=== PATIENT | male | born 1985 | race Two or more races ===

== ENCOUNTER 2018-01-18 04:07 | Emergency (ER) | payer SELFPAY ==
[~2018-01-18] VITALS: Ht 170.2 cm; Wt 56.7 kg
[2018-01-18] MEDS ORDERED: MIDAZOLAM HCL PF 5 MG/5 ML VIAL. ONE ×2 (04:24→04:34)
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
[2018-01-18] MEDS ORDERED: TETANUS AND DIPHTHERIA TOX/PF 0.5 ML VIAL. VAX IM ONE (05:00)
[2018-01-18] MEDS ORDERED: BUPIVACAINE MPF 0.5% 30 ML VIAL. SQ ONE (05:00)
[2018-01-18] MEDS ORDERED: LIDOCAINE 2%/EPI 1:100,000 20 ML VIAL. IJ ONE (05:00)
[2018-01-18] MEDS ORDERED: MIDAZOLAM HCL PF 5 MG/5 ML VIAL. IV ONE ×2 (05:00)
[2018-01-18 05:07] LABS: BASO % 1 % (0-3); EOS % 0 % (0-3); HEMATOCRIT 44.5 % (39.0-53.0); HEMOGLOBIN 15.3 g/dL (13.0-17.5); LYMPH # 2.2 x10^3/uL (1.0-4.8); LYMPH % 31 % (24-48); MEAN CORPUSCULAR HEMOGLOBIN 31 pg (25-35); MEAN CORPUSCULAR HGB CONC 34 g/dL (31-37); MEAN CORPUSCULAR VOLUME 91 fL (79-100); MONO # 0.3 x10^3/uL (0.0-1.1); MONO % 4 % (0-9); NEUT # 4.6 x10^3uL (1.8-7.7); NEUT % 64 % (31-73); PLATELET COUNT 288 x10^3/uL (140-400); RED BLOOD COUNT 4.88 x10^6/uL (4.30-5.70); RED CELL DISTRIBUTION WIDTH 13.2 % (11.5-14.5); WHITE BLOOD COUNT 7.2 x10^3/uL (4.0-11.0)
[2018-01-18 05:16] LABS: GFR 86.6; MAGNESIUM 2.2 mg/dL (1.8-2.4)
[2018-01-18] MEDS ORDERED: THIAMINE 200 MG/2 ML VIAL. IV ONE (05:30)
[2018-01-18] MEDS ORDERED: MVI, ADULT NO.4 WITH VIT K 10 ML, FOLIC ACID 1 MG, THIAMINE 100 MG in IV DEXTROSE 5%-LA... IV ONE ×4 (05:30)
[2018-01-18] MEDS ORDERED: IV RINGERS SOLUTION,LACTATED 1,000 ML IV ONE (05:30)
[2018-01-18] MEDS ORDERED: MVI, ADULT NO.4 WITH VIT K 10 ML VIAL IV ONE (05:30)
[2018-01-18] MEDS ORDERED: FAMOTIDINE 20 MG/2 ML VIAL ONE (05:32)
[2018-01-18] MEDS: MIDAZOLAM HCL PF 5 MG/5 ML VIAL. IV ONE ×2 (05:46→06:30)
--- NOTE | 2018-01-18 05:50 | RAD ---
CT head without contrast. CT cervical spine without contrast. HISTORY: Head injury, right periorbital laceration. TECHNIQUE: Noncontrast CT imaging of the head and cervical spine with multiplanar reconstructions. CT head findings: No intracranial hemorrhage, mass, hydrocephalus or infarction. No acute ischemic changes evident. Orbits, paranasal sinuses, mastoids and bones are unremarkable. IMPRESSION: No acute intracranial CT abnormality. CT cervical spine findings: Craniocervical junction intact. Cervical vertebral body height and alignment intact. No fracture of the cervical spine. Mild left apical paraseptal emphysema. 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 Paraspinal tissues unremarkable. IMPRESSION: No acute osseous injury of the cervical spine. Exposure: One or more of the following individualized dose reduction techniques were utilized for this examination: 1. Automated exposure control 2. Adjustment of the mA and/or kV according to patient size 3. Use of iterative reconstruction technique Electronically signed by: Ronal Bolaños MD (01/18/2018 5:47 AM) [id number]
[2018-01-18 05:55] LABS: BARBITURATES NEG (NEG); BENZODIAZEPINES NEG (NEG); CANNABINOIDS NEG (NEG); COCAINE NEG (NEG); METHADONE NEG (NEG); OPIATES NEG (NEG); PHENCYCLIDINE NEG (NEG)
[2018-01-18 05:57] LABS: BILIRUBIN,URINE NEG (NEG); CLARITY,URINE CLEAR; COLOR,URINE STRAW; GLUCOSE,URINE NEG (NEG)
[2018-01-18 05:58] LABS: BACTERIA,URINE 0 /HPF (0-FEW); NITRITE,URINE NEG (NEG); RBC,URINE 0 /HPF (0-2); UROBILINOGEN,URINE 0.2 mg/dL (0.2 mg/dL); WBC,URINE 0 /HPF (0-4)
[2018-01-18 05:59] LABS: AMPHETAMINE/METHAMPHETAMINE NEG (NEG)
[2018-01-18 06:59] VITALS: BP 103/48
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
[2018-01-18 08:54] LABS: CALCIUM 8.3 mg/dL (8.5-10.1)
== END 2018-01-18 07:55 | disposition home or self-care (01) ==
LOC: ER 04:07
DX: S09.90XA Unspecified injury of head, initial encounter (principal); S01.111A Laceration without foreign body of right eyelid and periocular area, initial encounter; S60.512A Abrasion of left hand, initial encounter; S60.511A Abrasion of right hand, initial encounter; S43.401A Unspecified sprain of right shoulder joint, initial encounter; F10.229 Alcohol dependence with intoxication, unspecified; X58.XXXA Exposure to other specified factors, initial encounter; Y93.89 Activity, other specified; Y99.8 Other external cause status; Y92.89 Other specified places as the place of occurrence of the external cause
CPT/HCPCS: 12013; 36415; 51701; 70450; 71045; 72125; 73030; 73120; 80048; 80307; 81001; 83735; 85025; 85610; 85730; 90471; 90714; 96365; 96375; 99285; G0480; J2250; J7120; G0479

== ENCOUNTER 2018-01-18 16:57 | Emergency (ER) | payer SELFPAY ==
[2018-01-18 06:59] VITALS: BP 103/48
== END 2018-01-18 17:00 | disposition left against medical advice (07) ==
LOC: ER 16:57
DX: M25.511 Pain in right shoulder (principal); Z53.21 Procedure and treatment not carried out due to patient leaving prior to being seen by health care provider

== ENCOUNTER 2018-08-08 00:29 | Emergency (ER) | payer SELFPAY ==
[~2018-08-08] VITALS: Ht 170.2 cm; Wt 56.7 kg
[2018-08-08 00:45] VITALS: BP 144/88
--- NOTE | 2018-08-08 01:01 | PHYS DOC ---
Past History Past Medical History: No Pertinent History Past Surgical History: No Surgical History Smoking: Cigarettes, Less than 1pk/day Alcohol Use: None Drug Use: None, Other Adult General Chief Complaint Chief Complaint: EARACHE/EAR PAIN HPI HPI Patient is a 33-year-old male presenting to the ED complaining of left ear pain. He describes the sensation as pressure in his left ear which started about 20 minutes ago. Reports associated sore throat. He states that his left ear won't "pop". He states that the left ear hurts more when he blows his nose. He rates the pain as a 7 out of 10 and states that the pain radiates to his left cheek. He also complains of phlegm production for 2 days which has tinges of red in it. He denies any recent travel, but admits that his has been sick. Review of Systems Review of Systems Constitutional: Denies fever or chills [] Eyes: Denies change in visual acuity, redness, or eye pain [] HENT: Reports nasal congestion and sore throat Respiratory: Reports cough; denies shortness of breath [] Cardiovascular: Denies chest pain GI: Denies abdominal pain, nausea, vomiting, or diarrhea [] : Denies dysuria or hematuria [] Musculoskeletal: Denies back pain or joint pain [] Integument: Denies rash or skin lesions [] Neurologic: Denies headache, focal weakness or sensory changes [] Complete systems were reviewed and found to be within normal limits, except as documented in this note. Allergies Allergies Allergies Coded Allergies Type Severity Reaction Last Updated Verified Unable to Assess 01/18/18 No Physical Exam Physical Exam Constitutional: Well developed, well nourished, no acute distress, non-toxic appearance. [] HENT: Normocephalic, atraumatic, left tympanic membrane slightly erythematous, oropharynx moist, bilateral tonsillar exudates, significant dental rodo to left mandibular 2nd molar Eyes: PERRL, EOMI, conjunctiva normal, no discharge. [] Neck: Normal range of motion, no tenderness, supple Cardiovascular: Heart rate regular rhythm, no murmur [] Lungs & Thorax: Bilateral breath sounds clear to auscultation [] Skin: Warm, dry, no erythema, no rash. [] Extremities: No tenderness, ROM intact, no edema. [] Neurologic: Alert and oriented X 3, no focal deficits noted. [] Psychologic: Affect normal, judgement normal, mood normal. [] EKG EKG [] Radiology/Procedures Radiology/Procedures [] Course & Med Decision Making Course & Med Decision Making 33-year-old male complaining of left ear pain. Physical exam reveals bilateral tonsillar exudates and significant dental caries. One time dose of dexamethasone and Augmentin given. Dragon Disclaimer Dragon Disclaimer This electronic medical record was generated, in whole or in part, using a voice recognition dictation system. Departure Departure: Impression: Primary Impression: Pharyngitis Additional Impressions: Dental caries Otalgia of left ear Disposition: HOME, SELF-CARE Condition: STABLE Referrals: PCP,NO (PCP) Patient Instructions: Dental Caries, Viral and Bacterial Pharyngitis, Easy-to- Read Scripts Chlorhexidine Gluconate (PERIDEX) 15 Ml Mouthwash 15 ML PO BID for dental caries, #946 ML Prov: ROXANE RAZA DO 08/08/18 Amoxicillin/Potassium Clav (AUGMENTIN 875-125 TABLET) 1 Each Tablet 1 TAB PO BID for Phayngitis/dental caries, #14 TAB Prov: ROXANE RAZA DO 08/08/18 Problem Qualifiers Primary Impression: Pharyngitis Pharyngitis/tonsillitis etiology: unspecified etiology Qualified Codes: J02.9 - Acute pharyngitis, unspecified ROXANE RAZA DO Aug 08, 2018 01:01
[2018-08-08] MEDS ORDERED: AMOX1TAB61 PO (01:14)
[2018-08-08] MEDS ORDERED: AMOXICILLIN/K CLAV 875/125MG TABLET. PO ONE (01:15)
[2018-08-08] MEDS ORDERED: DEXAMETHASONE 4 MG TABLET PO ONE (01:15)
[2018-08-08] MEDS ORDERED: CHLO15MO2 PO (01:20)
[2018-08-08] MEDS ORDERED: AMOXICILLIN/K CLAV 875/125MG TABLET. ONE (01:38)
[2018-08-08] MEDS ORDERED: DEXAMETHASONE 4 MG TABLET ONE (01:38)
== END 2018-08-08 01:50 | disposition home or self-care (01) ==
LOC: ER 00:29
DX: J02.9 Acute pharyngitis, unspecified (principal); K02.9 Dental caries, unspecified; H92.02 Otalgia, left ear; F17.210 Nicotine dependence, cigarettes, uncomplicated
CPT/HCPCS: 99283; J8540

== ENCOUNTER 2020-01-19 07:32 | Emergency (ER) | payer SELFPAY ==
[~2020-01-19] VITALS: Ht 182.9 cm; Wt 60.8 kg
[2020-01-19 07:32] VITALS: BP 129/83
[~2020-01-19 07:32] MED LIST: AMOX1TAB61 PO; CHLO15MO2 PO
--- NOTE | 2020-01-19 07:38 | PHYS DOC ---
Past History Past Medical History: No Pertinent History Past Surgical History: No Surgical History Smoking: Cigarettes, Less than 1pk/day Alcohol Use: None Drug Use: None, Other General Adult EDM: Chief Complaint: Neck Pain HPI: HPI: 34M p/w left medial trapezius pain over last day or so. Has been "sparring" r ecently, and having local pain, point to left medial scapular region, mildly tender to touch. No fever, chills. No CP. Pain is worsened with direct touch and with movement of LUE. Patient is left hand dominant. Review of Systems: Review of Systems: General: No fevers, chills. ENT: No nasal congestion, sore throat. CV: No chest pain, edema. Resp: No shortness of breath, cough. GI: No abdominal pain, nausea, vomiting. Neuro: No headache, dizziness, weakness. MSK: No back pain. Reports myalgia. Skin: No acute rash, lesion. Remainder of ROS reviewed and otherwise negative unless otherwise specified. Heart Score: Risk Factors: Risk Factors: DM, Current or recent (<one month) smoker, HTN, HLP, family history of CAD, obesity. Risk Scores: Score 0 - 3: 2.5% MACE over next 6 weeks - Discharge Home Score 4 - 6: 20.3% MACE over next 6 weeks - Admit for Clinical Observation Score 7 - 10: 72.7% MACE over next 6 weeks - Early Invasive Strategies Allergies: Allergies: Allergies Coded Allergies Type Severity Reaction Last Updated Verified Unable to Assess 01/18/18 No Physical Exam: PE: Gen: NAD. Head: NC/AT Eyes: No scleral icterus. No conjunctival injection. ENT: MMM. Posterior OP clear. Neck: Supple. NT. No meningismus. CV: RRR. Peripheral pulses intact. Resp: CTAB. Abd: Soft. NT. ND. MSK: No peripheral cyanosis. No edema. Mild TTP and hypertonicity of left medial trapezius region without overlying skin changes. Neuro: A&Ox3. Strength & sensation grossly intact throughout. Skin: Warm. Dry. Psych: Flat affect. EKG: EKG: [] Radiology/Procedures: Radiology/Procedures: [] Course & Med Decision Making: Course & Med Decision Making In summary, 34-year-old male who presents for evaluation of left medial trapezius pain in the setting of recent physical activity. He is mildly tender with hypertonicity of the left medial trapezius region without overlying skin ch anges. No clinical signs or symptoms concerning for meningoencephalitis or atypical presentation of ACS, PE, or dissection. He remains well-appearing and nontoxic. Do not feel that labs or imaging would be of benefit at this time. Provided with lidocaine patch. Will be discharged home with prescription for Flexeril and lidocaine. Return precautions given. Dragon Disclaimer: Dragchriss Disclaimer: This electronic medical record was generated, in whole or in part, using a voice recognition dictation system. Departure Departure: Impression: Primary Impression: Myalgia Disposition: HOME, SELF-CARE Condition: STABLE Referrals: PCP,MARIANO (PCP) Patient Instructions: Myalgia, Adult Scripts Cyclobenzaprine Hcl (CYCLOBENZAPRINE HCL) 10 Mg Tablet 1 TAB PO TID for muscle spasm, #21 TAB Prov: KEZIA MONTES DE OCA DO 01/19/20 Lidocaine (Lidocaine PATCH ) 1 Each Adh..patch 1 EACH TP DAILY for FOR LOCAL PAIN, #7 PATCH REMOVE AFTER 12 HOURS Prov: KEZIA MONTES DE OCA DO 01/19/20 KEZIA MONTES DE OCA DO Jan 19, 2020 07:38
[2020-01-19] MEDS ORDERED: CYCL-331 PO (07:54)
[2020-01-19] MEDS ORDERED: LIDO700A21 TP (07:54)
[2020-01-19] MEDS ORDERED: LIDOCAINE (700MG/PATCH) PATCH. TD ONE (08:15)
[2020-01-19] MEDS ORDERED: PATCH REMOVAL. MC ONE (21:00)
== END 2020-01-19 07:55 | disposition home or self-care (01) ==
LOC: ER 07:32
DX: M79.10 Myalgia, unspecified site (principal); M25.512 Pain in left shoulder; F17.210 Nicotine dependence, cigarettes, uncomplicated
CPT/HCPCS: 99283

== ENCOUNTER 2021-04-08 04:01 | Emergency (ER) | payer SELFPAY ==
[~2021-04-08] VITALS: Ht 182.9 cm; Wt 68.9 kg
[~2021-04-08 04:01] MED LIST changes: +CYCL-331 PO; +LIDO700A21 TP
--- NOTE | 2021-04-08 04:06 | PHYS DOC ---
Past History Past Medical History: No Pertinent History, Migraines Past Surgical History: No Surgical History Smoking: Cigarettes, Less than 1pk/day Alcohol Use: None Drug Use: None, Other General Adult HPI: HPI: "... I ve had a headache like for 3 - to 4 days... " " I was moving furniture all day yesterday...".. " I don't work today..." Patient is a 35 year old male who presents with above hx and complaints headache. No recent travel. No history of fever. No history immunosuppression. No specific ill contacts. Patient denies any trauma. Pain has been relieved with [id number] ibuprofen. Patient states he has been having increased stress of arguments with a significant other. Patient does smoke tobacco and marijuana. Denies other illicit drugs. No animal exposures. Patient has not had Covid vaccination, states he believes in God and God will prevent him from getting Covid. Review of Systems: Review of Systems: Constitutional: Denies fever or chills Eyes: Denies change in visual acuity HENT: Denies nasal congestion or sore throat Respiratory: Denies cough or shortness of breath Cardiovascular: Denies chest pain or edema GI: Denies abdominal pain, nausea, vomiting, bloody stools or diarrhea : Denies dysuria Musculoskeletal: Denies back pain or joint pain Integument: Denies rash Neurologic: Complains headache,. Denies focal weakness or sensory changes Endocrine: Denies polyuria or polydipsia Lymphatic: Denies swollen glands Psychiatric: Denies depression or anxiety Family History: Family History: Noncontributory presentation Current Medications: Current Meds: See nursing for home meds Allergies: Allergies: Allergies Coded Allergies Type Severity Reaction Last Updated Verified No Known Drug Allergies 01/19/20 No Physical Exam: PE: Constitutional: , no acute distress, non-toxic appearance. [] HENT: Normocephalic, atraumatic, bilateral external ears normal, oropharynx moist, no oral exudates, nose mild turbinate congestion and clear rhinorrhea Eyes: PERRLA, EOMI, conjunctiva normal, no discharge. [] Neck: Normal range of motion, no tenderness, supple, no stridor. [] Cardiovascular:Heart rate regular rhythm, no murmur [] Lungs & Thorax: Bilateral breath sounds equal apex with scattered wheezes on auscultation [] Abdomen: Bowel sounds normal, soft, no tenderness, no masses, no pulsatile masses. [] Skin: Warm, dry, no erythema, no rash. [] Back: No tenderness, no CVA tenderness. [] Extremities: No tenderness, no cyanosis, no clubbing, ROM intact, no edema. [] Neurologic: Alert and oriented X 3, normal motor function, normal sensory function, no focal deficits noted. [] DTRs +2 patella and brachial. [employer] equ al. Right-hand dominant. No drift. Distal sensation intact. Patient is amatory without problems Psychologic: Affect anxious, judgement normal, mood normal. [] EKG: EKG: [] Radiology/Procedures: Radiology/Procedures: [] Heart Score: C/O Chest Pain: N/A Risk Factors: Risk Factors: DM, Current or recent (<one month) smoker, HTN, HLP, family history of CAD, obesity. Risk Scores: Score 0 - 3: 2.5% MACE over next 6 weeks - Discharge Home Score 4 - 6: 20.3% MACE over next 6 weeks - Admit for Clinical Observation Score 7 - 10: 72.7% MACE over next 6 weeks - Early Invasive Strategies Course & Med Decision Making: Course & Med Decision Making Pertinent Labs and Imaging studies reviewed. (See chart for details) Patient take Tylenol and ibuprofen as needed for discomfort. Follow-up primary care. Return if any concerns. Impression: 1. Headache [] Dragon Disclaimer: Dragon Disclaimer: This electronic medical record was generated, in whole or in part, using a voice recognition dictation system. Departure Departure: Referrals: PCP,NO (PCP) Dragchriss Disclaimer This chart was dictated in whole or in part using Voice Recognition software in a busy, high-work load, and often noisy Emergency Department environment. It ma y contain unintended and wholly unrecognized errors or omissions. DEMARCUS BARAJAS MD Apr 08, 2021 04:06
[2021-04-08 04:21] VITALS: BP 155/81
[2021-04-08] MEDS: ACETAMINOPHEN 500 MG TABLET PO ONE (04:39)
== END 2021-04-08 05:03 | disposition home or self-care (01) ==
LOC: ER 04:01
DX: R51.9 Headache, unspecified (principal); F17.210 Nicotine dependence, cigarettes, uncomplicated
CPT/HCPCS: 99282

== ENCOUNTER 2021-06-14 20:19 | Emergency (ER) | payer SELFPAY ==
[~2021-06-14] VITALS: Ht 182.9 cm; Wt 65.5 kg
[2021-06-14] MEDS ORDERED: LIDOCAINE/EPI/TETRACAINE TOPICAL GEL 3 ML. TP ONE (21:15)
[2021-06-14] MEDS ORDERED: oxyCODONE/APAP 5/325 1 TAB TABLET PO ONE ×2 (21:15→23:00)
[2021-06-14] MEDS ORDERED: CLINDAMYCIN HCL 150 MG CAPSULE PO ONE (21:15)
[2021-06-14] MEDS ORDERED: CLIN300C9 PO (21:24)
--- NOTE | 2021-06-14 21:25 | PHYS DOC ---
Past History Past Medical History: No Pertinent History, Migraines Past Surgical History: No Surgical History Smoking: Cigarettes, Less than 1pk/day Alcohol Use: None Drug Use: None, Other Adult General Chief Complaint Chief Complaint: ABSCESS HPI HPI Patient is a 35-year-old male who presents with a chief complaint of swelling, redness and pain on inner upper right arm that is been there 2 days. States that pain is 7 out of 10, dull and achy and warm, with no radiation. Denies any recent traumas, travels, fevers, chest pain, shortness of breath, abdominal p ain, nausea, vomiting. States it happened after he shaved his underarm and thinks it is an ingrown hair. Review of Systems Review of Systems Review of systems otherwise unremarkable except noted in HPI Current Medications Current Medications Current Medications Medications (Trade) Dose Ordered Sig/Cat Start Time Stop Time Status Last Admin Dose Admin Ceftriaxone Sodium 1 gm/ Sodium Chloride 50 ml @ 100 mls/hr 1X ONCE 06/14/21 21:15 06/14/21 21:44 Clindamycin HCl (Cleocin) 450 mg 1X ONCE 06/14/21 21:15 06/14/21 21:16 DC Lidocaine/ Epinephrine (Let (Xujq-[id number]) Gel) 3 ml 1X ONCE 06/14/21 21:15 06/14/21 21:16 DC Oxycodone/ Acetaminophen (Percocet 5/325) 2 tab 1X ONCE 06/14/21 21:15 06/14/21 21:16 DC Allergies Allergies Allergies Uncoded Allergies Type Severity Reaction Last Updated Verified STARTS WITH A "N" Allergy Unknown 06/14/21 Physical Exam Physical Exam Constitutional: Well developed, well nourished, no acute distress, non-toxic appearance. [] HENT: Normocephalic, atraumatic, bilateral external ears normal, oropharynx moist, no oral exudates, nose normal. [] Neck: Normal range of motion, no tenderness, supple, no stridor. [] Cardiovascular:Heart rate regular rhythm, no murmur [] Lungs & Thorax: Bilateral breath sounds clear to auscultation [] Extremities: Right inner upper arm with 3 cm, erythematous, fluctuant mass Neurologic: Alert and oriented X 3, no focal deficits noted. [] Psychologic: Affect normal, judgement normal, mood normal. [] Current Patient Data Vital Signs Vital Signs Date Time Temp Pulse Resp B/P (MAP) Pulse Ox O2 Delivery O2 Flow Rate FiO2 06/14/21 20:38 98.5 107 20 140/91 100 Room Air EKG EKG [] Radiology/Procedures Radiology/Procedures 3 cm fluctuant mass on upper inner right arm, cleaned extensively with chlorhexidine, L ET placed for topical anesthesia, stab incision with 11 blade scalpel and aspirated 6 mils of purulent fluid. Patient tolerated well. Cleaned again and bandaged. [] Heart Score C/O Chest Pain: No Risk Factors: Risk Factors: DM, Current or recent (<one month) smoker, HTN, HLP, family history of CAD, obesity. Risk Scores: Risk Factors: DM, Current or recent (<one month) smoker, HTN, HLP, family history of CAD, obesity. Course & Med Decision Making Course & Med Decision Making Patient is a 35-year-old male who presents with findings concerning for abscess Vital signs notable for tachycardia. Physical exam noted above. Started on antibiotics in the ED. Given pain medicine. [] Dragon Disclaimer Dragon Disclaimer This electronic medical record was generated, in whole or in part, using a voice recognition dictation system. Departure Departure: Impression: Primary Impression: Abscess Disposition: HOME / SELF CARE / HOMELESS Condition: STABLE Referrals: PCP,NO (PCP) JULIETA GARCIA MD Patient Instructions: Abscess, Abscess, Care After Additional Instructions: Thank you for coming into the emergency department tonight and allowing us to take care of you. Please read the attached information carefully to go back over some of the things we discussed. You can use Tylenol, ibuprofen and ice as needed at home for pain control. Please take all of your antibiotics as prescribed. Please follow-up with your primary care physician as soon as you can to update on ED visit and set up a follow-up for wound reevaluation. If you do not have a primary care physician please call the 1 at the number provided or find 1 in the resource packet given to you that are is local and/or at free clinics. Please come back to the ED with new or concerning symptoms as discussed. Scripts Clindamycin Hcl (CLINDAMYCIN HCL) 300 Mg Capsule 1 CAP PO Q6HRS for cellulitis, #21 CAP Prov: ADRIEN EMANUEL MD 06/14/21 ADRIEN EMANUEL MD Jun 14, 2021 21:25
[2021-06-14] MEDS ORDERED: cefTRIAXone IM 1 GM VIAL IM ONE (21:30)
[2021-06-14] MEDS ORDERED: LIDOCAINE 2% TOPICAL JELLY 5GM TUBE. TP ONE ×2 (22:35→22:45)
[2021-06-14] MEDS ORDERED: IBUPROFEN 600 MG TABLET. PO ONE (23:00)
== END 2021-06-14 22:48 | disposition home or self-care (01) ==
LOC: ER 20:19
DX: L02.413 Cutaneous abscess of right upper limb (principal); G43.909 Migraine, unspecified, not intractable, without status migrainosus; F17.210 Nicotine dependence, cigarettes, uncomplicated
CPT/HCPCS: 10060; 96372; 99284; J0696